=== PATIENT | female | born 1960 | race African-American/Black ===

== ENCOUNTER 2023-10-30 12:50 | Emergency (ER) | payer SELFPAY ==
[~2023-10-30] VITALS: Ht 162.6 cm; Wt 88.0 kg
[2023-10-30 12:54] VITALS: TEMP 98; O2SAT 100
[2023-10-30] MEDS: NALOXONE HCL 0.4MG/ML 1ML VIAL IV ONE (13:49)
[2023-10-30 14:10] LABS: EOSINOPHILS % 3.6 % (0.0-5.0); HEMATOCRIT. 38.4 % (36.0-48.0); HEMOGLOBIN. 12.4 g/dL (12.0-16.0); LYMPHOCYTES % 31.4 % (20.0-50.0); MEAN CORPUSCULAR HEMOGLOBIN 30.1 pg (28.0-32.0); MEAN CORPUSCULAR HGB CONC 32.4 g/dL (31.0-37.0); MEAN CORPUSCULAR VOLUME 92.8 fL (81.0-99.0); MEAN PLATELET VOLUME 8.9 fl (7.4-10.4); MONOCYTES % 9.7 % (2.0-8.0); NEUTROPHILS % 54.3 % (40.0-76.0); PLATELET 264 x1000/uL (130-400); RED BLOOD CELL COUNT 4.14 mill/uL (4.2-5.4); RED CELL DISTRIBUTION WIDTH 13.6 % (11.6-14.6)
[2023-10-30 14:29] LABS: CHLORIDE 106 mEq/L (98-107); POTASSIUM 4.3 mEq/L (3.5-5.1); SODIUM 139 mEq/L (136-145)
[2023-10-30 14:30] LABS: CALCIUM 9.4 mg/dL (8.7-10.4); CARBON DIOXIDE 28 mEq/L (21-32)
[2023-10-30 14:35] LABS: CREATININE 0.7 mg/dL (0.6-1.0); GLUCOSE 116 mg/dL (70-105); UREA NITROGEN BLOOD 19 mg/dL (9-23)
[2023-10-30 14:36] LABS: AMMONIA < 17 uMol/L (<32)
[2023-10-30 14:37] LABS: ACETAMINOPHEN < 2 ug/mL (10-30)
[2023-10-30 14:43] LABS: ETHANOL BLOOD < 10 mg/dL (<10); TROPONIN I HIGH SENSITIVITY < 4 ng/L (3.0-34)
[2023-10-30 15:06] LABS: CLARITY URINE CLEAR (CLEAR); COLOR URINE YELLOW (YELLOW); GLUCOSE URINE NEGATIVE (NEGATIVE); KETONES URINE NEGATIVE (NEGATIVE); LEUKOCYTE ESTERASE URINE 1+ (NEGATIVE); NITRITE URINE NEGATIVE (NEGATIVE); OCCULT BLOOD URINE NEGATIVE (NEGATIVE); PH URINE 6.5 (4.5-8.0); PROTEIN URINE NEGATIVE (NEGATIVE); UROBILINOGEN URINE 0.2 E.U./dL (0.2-1.0)
[2023-10-30 15:20] LABS: *AMPHETAMINES SCREEN URINE NEGATIVE (NEGATIVE); *BARBITURATES SCREEN URINE NEGATIVE (NEGATIVE); *BENZODIAZEPINES SCREEN URINE NEGATIVE (NEGATIVE); *COCAINE SCREEN URINE NEGATIVE (NEGATIVE); CANNABINOID URINE SCREEN NEGATIVE (NEGATIVE); METHADONE URINE SCREEN NEGATIVE (NEGATIVE); OPIATES URINE SCREEN NEGATIVE (NEGATIVE); PHENCYCLIDINE URINE SCREEN NEGATIVE (NEGATIVE)
[2023-10-30 15:23] LABS: MUCUS URINE TRACE /lpf (< = 2+)
[2023-10-30 15:24] LABS: SQUAMOUS EPITHELIAL CELL URINE FEW /lpf (RARE/1+); WBC URINE 0-2 /hpf (0-2)
[2023-10-30 15:25] LABS: BACTERIA URINE TRACE; RBC URINE NONE SEEN /hpf (0-2)
[2023-10-30] MEDS ORDERED: NALO4SPR BOTHNSTRLS (17:15)
[2023-10-30 17:43] VITALS: BP 134/79; PULSE 69; RESP 16
== END 2023-10-30 17:45 | disposition home or self-care (01) ==
LOC: ER 13:53
DX: F11.90 Opioid use, unspecified, uncomplicated (principal)
CPT/HCPCS: 80305; 80048; 81003; 80307; 80329; 80320; 82140; 83880; 83690; 85025; 85610; 84484; 36415; 71045; 70450; 93005; 96374; 99285; J2310; Z7610 ×2; G0480